=== PATIENT | male | born 1945 | race Caucasian/White ===

== ENCOUNTER 2018-01-05 13:19 | Inpatient (IN) ==
--- NOTE | 2018-01-05 14:40 | ED ---
HPI General Chief complaint: Skin/Abscess/Foreign Body Stated complaint: toe complaint Time Seen by Provider: 01/05/18 14:24 History of Present Illness HPI narrative: Patient comes back to the emergency department for re-evaluation right third toe infection. Patient reports has been ongoing for approximately a week. Patient is he has been soaking it in alcohol and peroxide. Denies anything making it better. States the whiteness over the dorsal aspect of the right toe seems to have expanded. Patient denies any pain with this but states he has neuropathy. Denies any fevers. Patient is he recently moved to the area does not have a primary care doctor. Patient states his right foot and lower extremity has been swollen for years. States right is normally worse than the left. Patient is he does not want to stay in the hospital he just went to get a prescription for some antibiotics. Patient states that he tried getting a primary care doctor however when called the physician he was referred to him by his insurance was told that they do not accept his insurance anymore. Denies any fevers. Related Data Home Medications Medication Instructions Recorded Confirmed Humalog U-100 Insulin NOT APPLICABLE DIRECTED 01/01/18 fenofibrate 160 mg PO DAILY 01/01/18 01/05/18 potassium chloride 10 mg PO DAILY 01/01/18 01/05/18 ranitidine HCl 150 mg PO BID 01/01/18 01/05/18 terazosin 20 mg PO DAILY 01/01/18 01/01/18 torsemide 20 mg PO DAILY 01/01/18 01/05/18 amlodipine 10 mg PO DAILY 01/05/18 01/05/18 atorvastatin 40 mg PO DAILY 01/05/18 01/05/18 carvedilol [Coreg] 1 PO BID 01/05/18 clopidogrel 75 mg PO DAILY 01/05/18 01/05/18 glimepiride 4 mg PO BID 01/05/18 01/05/18 losartan 100 mg PO DAILY 01/05/18 01/05/18 metformin 1,000 mg PO BID 01/05/18 01/05/18 sertraline 100 mg PO DAILY 01/05/18 01/05/18 Allergies Allergy/AdvReac Type Severity Reaction Status Date / Time No Known Allergies Allergy Unverified 01/01/18 12:28 Review of Systems Except as stated in HPI: all other systems reviewed are negative PMFSH Medical History Medical History Congestive heart failure (Acute) Depression (Acute) Diabetes (Acute) High cholesterol (Acute) Hypertension (Acute) Neuropathy (Acute) Social History Social History Substance History: No History of Abuse Smoking Status: Former smoker How Often Do You Have a Drink Containing Alcohol: Never Recent Travel in [facility] within the Last 8 Weeks: Yes Recent Out of Country Travel within the Last 8 Weeks: No Immunization History Tetanus Immunization: Unsure Exam Narrative Exam Narrative: GENERAL: Well-developed, overly nourished, in no acute distress , and non-ill appearing. SKIN: Patient has a ulcer noted over the distal tip of the right third toe. There is some sloughing of skin on the dorsal aspect of same toe. It is nontender. There is scant drainage. Is erythematous. Afebrile. Without crepitus. HEAD: Atraumatic. Normocephalic. EYES: Pupils equal and round. EOMI. No scleral icterus. No injection or drainage. ENT: No nasal bleeding or discharge. Mucous membranes pink and moist. NECK: Trachea midline. Supple. No nuclear rigidity. RESPIRATORY: No accessory muscle use. No respiratory distress. MUSCULOSKELETAL: No obvious deformities. No clubbing. No cyanosis. Edema bilateral lower extremities right greater than left.. Full range of motion. NEUROLOGICAL: Awake and alert. No obvious cranial nerve deficits. Motor grossly within normal limits. Normal speech. PSYCHIATRIC: Appropriate mood and affect; insight and judgment normal. Course Consultations Consultation #1: Discussed patient with Dr. Hogan lab instructor on-call, who requested MRI of foot and will see patient in consult. Time: 15:40 Consultation #2: Discussed patient with Dr. Davis, who is agreeable to admit the patient. Time: 16:08 Initial Documented Vital Signs Temperature 98.3 F 01/05/18 13:29 Pulse Rate 81 01/05/18 13:29 Respiratory Rate 01/05/18 13:29 Blood Pressure 185/96 H 01/05/18 13:29 Pulse Oximetry 95 01/05/18 13:29 Last Documented Vital Signs Temperature 98.3 F 01/05/18 13:29 Pulse Rate 81 01/05/18 13:29 Respiratory Rate 01/05/18 13:29 Blood Pressure 185/96 H 01/05/18 13:29 Pulse Oximetry 95 01/05/18 13:29 Medical Decision Making MDM Narrative Medical decision making narrative: Patient was seen and examined. IV was established patient was placed on continuous cardiac monitoring. Initial laboratory and radiological studies were ordered. Wound was cultured. Upon reviewing patient's x-ray noting osteomyelitis. This was discussed with patient is now agreeable with this for admission to the hospital. Patient was started on Zosyn and vancomycin. Patient with podiatry, who requested MRI will see patient in consult. Discussed patient with hospitalist who is agreeable to admit the patient. Discussed patient with Dr. Hollis, who is in agreement plan of care disposition. All questions were answered. Patient remained stable throughout ED course. Differential Diagnosis Differential Diagnosis: Cellulitis, abscess, paronychia, diabetic ulcer, felon, osteomyelitis Lab Data Lab results reviewed: Yes I reviewed the patient's lab results. Result diagrams: 01/05/18 14:40 01/05/18 14:40 Lab Results 01/05/18 01/05/18 Range/Units 14:40 14:40 WBC 9.3 (4.0-11.0) th/mm3 RBC 4.32 L (4.50-5.90) mil/mm3 Hgb 12.3 L (13.0-17.0) gm/dL Hct 36.6 L (39.0-51.0) % MCV 84.8 (80.0-100.0) fL MCH 28.6 (27.0-34.0) pg MCHC 33.7 (32.0-36.0) % RDW 13.9 (11.6-17.2) % Plt Count 345 (150-450) th/mm3 MPV 6.7 L (7.0-11.0) fL Neut % (Auto) 69.1 (16.0-70.0) % Lymph % (Auto) 16.9 (9.0-44.0) % Valley % (Auto) 10.4 H (0.0-8.0) % Eos % (Auto) 2.7 (0.0-4.0) % Baso % (Auto) 0.9 (0.0-2.0) % Neut # (Auto) 6.5 (1.8-7.7) th/mm3 Lymph # (Auto) 1.6 (1.0-4.8) th/mm3 Valley # (Auto) 1.0 H (0.0-0.9) th/mm3 Eos # (Auto) 0.3 (0.0-0.4) th/mm3 Baso # (Auto) 0.1 (0.0-0.2) th/mm3 WBC Differential . Differential Comment Auto diff final Sodium 138 (136-145) meq/L Potassium 3.8 (3.5-5.1) meq/L Chloride 103 (98-107) meq/L Carbon Dioxide 25.8 (21.0-32.0) meq/L Anion Gap 9 (5-15) meq/L BUN 26 H (7-18) mg/dL Creatinine 1.70 H (0.60-1.30) mg/dL Estimated GFR 40 L (>89) mL/min Random Glucose 205 H (74-106) mg/dL Calcium 8.6 (8.5-10.1) mg/dL Imaging Data Radiologist's impression: Foot X-Ray 01/05/18 14:32 CONCLUSION: 1. Destructive change involving the third distal phalanx characteristic of osteomyelitis. 2. Soft tissue swelling over the dorsum of the foot as well. Discharge Plan Discharge Disposition Patient Disposition: 30 Still Patient Discharge Condition Condition: Stable Discharge Details Diagnosis: Osteomyelitis Physicians Team ED Provider: Ford Hollis ED Midlevel Provider: Waldo Rao Primary Care Provider: Primary Care Jroge,Corie Attending Provider: Kelsea Davis Other Providers: Smtiha Hogan Discharge Interventions Interventions: Vital Signs Last Done: 01/05/18 13:29 Status ED Status: Pending Admission
[2018-01-05 15:05] LABS: Baso # (Auto) 0.1 th/mm3 (0.0-0.2); Baso % (Auto) 0.9 % (0.0-2.0); Eos # (Auto) 0.3 th/mm3 (0.0-0.4); Eos % (Auto) 2.7 % (0.0-4.0); Hematocrit 36.6 % (39.0-51.0); Hemoglobin 12.3 gm/dL (13.0-17.0); Lymph # (Auto) 1.6 th/mm3 (1.0-4.8); Lymph % (Auto) 16.9 % (9.0-44.0); Mean Corpuscular HGB Conc 33.7 % (32.0-36.0); Mean Corpuscular Hemoglobin 28.6 pg (27.0-34.0); Mean Corpuscular Volume 84.8 fL (80.0-100.0); Mean Platelet Volume 6.7 fL (7.0-11.0); Mono % (Auto) 10.4 % (0.0-8.0); Neut # (Auto) 6.5 th/mm3 (1.8-7.7); Neut % (Auto) 69.1 % (16.0-70.0); Platelet Count 345 th/mm3 (150-450); Red Blood Count 4.32 mil/mm3 (4.50-5.90); Red Cell Distribution Width 13.9 % (11.6-17.2); White Blood Count 9.3 th/mm3 (4.0-11.0)
[2018-01-05 15:32] LABS: Calcium 8.6 mg/dL (8.5-10.1); Carbon Dioxide 25.8 meq/L (21.0-32.0); Potassium 3.8 meq/L (3.5-5.1)
--- NOTE | 2018-01-05 15:32 | XR ---
EXAM DATE: 01/05/2018 3:20 PM EDT AGE/SEX: 72 years / Male INDICATIONS: Swelling and inflammation entire right foot, especially third, fourth and fifth digits CLINICAL DATA: This is the patient's sequela encounter. Patient reports that signs and symptoms have been present for 1 week and indicates a pain score of Nonresponsive. MEDICAL/SURGICAL HISTORY: Diabetes. neuropathy None. COMPARISON: [facility], FOOT LIMITED RIGHT 2V, 01/01/2018. . FINDINGS: AP, lateral and oblique views of right foot were obtained and demonstrate soft tissue swelling over t he dorsum of the foot as well as over the third and fourth digits. There is destructive change is now noted involving the fourth distal phalanx with cortical loss and destructive change. There is extens vladimir soft tissue swelling in this region. No other focal bony abnormalities are noted. There are mild degenerative changes. CONCLUSION: 1. Destructive change involving the third distal phalanx characteristic of osteomyelitis. 2. Soft tissue swelling over the dorsum of the foot as well. Electronically signed by: Thai Obrien MD 01/05/2018 3:31 PM EDT
[2018-01-05] MEDS ORDERED: Vancomycin Inj 1,000 MG in Sodium Chlor 0.9% Inj 250 ML IV.SIG STA (15:38)
[2018-01-05] MEDS ORDERED: Piperacil/Tazo 4.5 GM Premix 4.5 GM/100 ML BAG IV.SIG STA (15:38)
--- NOTE | 2018-01-05 16:11 | P.HPIM ---
History of Present Illness Primary Care Physician: No Primary Care Physician Chief Complaint: Right middle toe infection History of Present Illness: 9-year-old male with a medical history significant for hypertension, CHF, diabetes, neuropathy initially presented to the hospital about a week ago for right toe infection but left the hospital AMA. He returned because the wound has not gotten better and appear to be getting worse. He reports that he might have been wearing the wrong shoe. He states he has neuropathy and cannot feel his feet. He denies any pain, no fevers or chills. The patient recently moved from [place] and does not have a primary care physician or any specialist that he follows with. Workup in the emergency room revealed destructive changes involving the third distal phalanx characteristics of osteomyelitis. He was reluctant to stay in the hospital but after discussion with him, he understands the need to stay and get treated. - Diagnosis (1) Chronic CHF (2) Diabetes (3) Osteomyelitis Review of Systems All other systems reviewed negative except as stated in HPI PMFSH - History History Provided By: Patient - Medical History Medical History: Medical History (Last Reviewed 01/05/18 @ 16:57 by Kelsea Davis MD) Congestive heart failure Depression Diabetes High cholesterol Hypertension Neuropathy - Surgical History Surgical History: Surgical History (Last Updated 01/05/18 @ 16:57 by Kelsea Davis MD) History of hernia repair History of heart artery stent - Family History Family History: Family History (Last Updated 01/05/18 @ 16:57 by Kelsea Davis MD) Other Family history non-contributory - Tobacco History Smoking Status: Former smoker - Alcohol History How Often Do You Have a Drink Containing Alcohol: Never - Substance Use History Substance History: No History of Abuse - Travel History Recent Travel in the [facility] Within the Last 8 Weeks: Yes Recent Travel Out of the Country Within the Last 8 Weeks: No - Immunization History Tetanus Immunization: Unsure Medications and Allergies Active Medications: Active Medications Amlodipine Besylate (Norvasc) 10 mg PO DAILY [facility] Atorvastatin Calcium (Lipitor) 40 mg PO DAILY [facility] Vancomycin HCl 1,000 mg/ (Sodium Chloride) 250 mls @ 250 mls/hr IV.SIG STAT STA Stop: 01/05/18 16:37 Non-Formulary Medication (Carvedilol [Coreg]) 25 mg PO BID [facility] Non-Formulary Medication (Losartan [Losartan]) 100 mg PO DAILY [facility] Non-Formulary Medication (Potassium Chloride) 10 mg PO DAILY [facility] Non-Formulary Medication (Ranitidine Hcl) 150 mg PO BID [facility] Non-Formulary Medication (Terazosin) 20 mg PO DAILY [facility] Non-Formulary Medication (Torsemide) 20 mg PO DAILY [facility] Sertraline HCl (Zoloft) 100 mg PO DAILY [facility] Allergies Allergy/AdvReac Type Severity Reaction Status Date / Time No Known Allergies Allergy Unverified 01/01/18 12:28 Home Medications Medication Instructions Recorded Confirmed Type Humalog U-100 Insulin NOT APPLICABLE DIRECTED 01/01/18 History fenofibrate 160 mg PO DAILY 01/01/18 01/05/18 History potassium chloride 10 mg PO DAILY 01/01/18 01/05/18 History ranitidine HCl 150 mg PO BID 01/01/18 01/05/18 History terazosin 20 mg PO DAILY 01/01/18 01/01/18 History torsemide 20 mg PO DAILY 01/01/18 01/05/18 History amlodipine 10 mg PO DAILY 01/05/18 01/05/18 History atorvastatin 40 mg PO DAILY 01/05/18 01/05/18 History carvedilol [Coreg] 1 PO BID 01/05/18 History clopidogrel 75 mg PO DAILY 01/05/18 01/05/18 History glimepiride 4 mg PO BID 01/05/18 01/05/18 History losartan 100 mg PO DAILY 01/05/18 01/05/18 History metformin 1,000 mg PO BID 01/05/18 01/05/18 History sertraline 100 mg PO DAILY 01/05/18 01/05/18 History Exam Vital signs: Vital Signs 01/05/18 13:29 Temperature 98.3 F Pulse Rate 81 Respiratory Rate 22 Blood Pressure 185/96 H Pulse Oximetry 95 Intake & Output 01/04/18 01/05/18 01/05/18 18:59 06:59 18:59 Weight 140.614 kg Narrative: CONSTITUTIONAL/GENERAL: Obese male in no apparent distress. Vital signs reviewed SKIN: No jaundice, rashes, or concerning lesions. Not diaphoretic. HEAD: Atraumatic. Normocephalic. EYES: Pupils equal and round and reactive. ENT: Hearing grossly normal. Nose without drainage. NECK: Trachea midline. Neck is supple, non-tender. No palpable thyroid enlargement or nodularity. CARDIOVASCULAR: Normal rate and regular rhythm without murmurs, gallops, or rubs. No JVD. Peripheral pulses 2+ and symmetric. RESPIRATORY/CHEST: Symmetric, unlabored respirations. Breath sounds equal and clear to auscultation bilaterally. No wheezes, crackles, rales, or rhonchi. GASTROINTESTINAL: Abdomen obese, soft, non-tender, non-distended. MUSCULOSKELETAL: Right lower extremity with 2+ edema, left lower extremity with 1+ edema. Pattern is chronic per the patient. Right middle toe has an avulsion with old blood, obvious pus collection involving the whole toe. Right fifth toe has a small necrotic area at the tip of it. NEUROLOGICAL: Awake and alert. No sensation in the foot. PSYCHIATRIC: No obvious mood problems. Results - Labs CBC & Chem 7: 01/05/18 14:40 01/05/18 14:40 Labs: Short CBC 01/05/18 Range/Units 14:40 WBC 9.3 (4.0-11.0) th/mm3 Hgb 12.3 L (13.0-17.0) gm/dL Hct 36.6 L (39.0-51.0) % Plt Count 345 (150-450) th/mm3 BMP 01/05/18 14:40 Sodium 138 Potassium 3.8 Chloride 103 Carbon Dioxide 25.8 BUN 26 H Creatinine 1.70 H Calcium 8.6 - Imaging Impressions Foot X-Ray 01/05/18 14:32 CONCLUSION: 1. Destructive change involving the third distal phalanx characteristic of osteomyelitis. 2. Soft tissue swelling over the dorsum of the foot as well. Caprini VTE Risk Assessment Caprini VTE Risk Assessment: Moderate/High Risk (score >= 2) Caprini Risk Assessment Model: Point Value = 1 Point Value = 2 Point Value = 3 Point Value = 5 Age 41-60 Minor surgery BMI > 25 kg/m2 Swollen legs Varicose veins or History of unexplained or recurrent spontaneous Oral contraceptives or hormone replacement Sepsis (< 1 month) Serious lung disease, including pneumonia (< 1 month) Abnormal pulmonary function Acute myocardial infarction Congestive heart failure (< 1 month) History of inflammatory bowel disease Medical patient at bed rest Age 61-74 Arthroscopic surgery Major open surgery (> 45 min) Laparoscopic surgery (> 45 min) Malignancy Confined to bed (> 72 hours) Immobilizing plaster cast Central venous access Age >= 75 History of VTE Family history of VTE Factor V Leiden Prothrombin [id number] Lupus anticoagulant Anticardiolipin antibodies Elevated serum homocysteine Heparin-induced thrombocytopenia Other congenital or acquired thrombophilia Stroke (< 1 month) Elective arthroplasty Hip, pelvis, or leg fracture Acute spinal cord injury (< 1 month) Prophylaxis Regimen: Total Risk Factor Score Risk Level Prophylaxis Regimen 0-1 Low Early ambulation 2 Moderate Order ONE of the following: *Sequential Compression Device (SCD) *Heparin 5000 units SQ BID 3-4 Higher Order ONE of the following medications: *Heparin 5000 units SQ TID *Enoxaparin/Lovenox 40 mg SQ daily (WT < 150 kg, CrCl > 30 mL/min) *Enoxaparin/Lovenox 30 mg SQ daily (WT < 150 kg, CrCl > 10-29 mL/min) *Enoxaparin/Lovenox 30 mg SQ BID (WT < 150 kg, CrCl > 30 mL/min) AND/OR *Sequential Compression Device (SCD) 5 or more Highest Order ONE of the following medications: *Heparin 5000 units SQ TID (Preferred with Epidurals) *Enoxaparin/Lovenox 40 mg SQ daily (WT < 150 kg, CrCl > 30 mL/min) *Enoxaparin/Lovenox 30 mg SQ daily (WT < 150 kg, CrCl > 10-29 mL/min) *Enoxaparin/Lovenox 30 mg SQ BID (WT < 150 kg, CrCl > 30 mL/min) AND *Sequential Compression Device (SCD) Assessment and Plan - Assessment (1) Chronic CHF Code(s): I50.9 - Heart failure, unspecified Status: Acute (2) Diabetes Code(s): E11.9 - Type 2 diabetes mellitus without complications Status: Acute (3) Osteomyelitis Code(s): M86.9 - Osteomyelitis, unspecified Status: Acute - Plan 72-year-old male with diabetes and neuropathy, hypertension, CHF admitted for right third toe osteomyelitis. Osteomyelitis: X-ray in the emergency room shows destructive change involving the third distal phalanx characteristic of osteomyelitis -Podiatry has been consulted. MRI ordered. -Wound cultures obtained. Continue vancomycin and Zosyn. Diabetes with neuropathy: -Sliding scale insulin with Accu-Cheks. Hold oral agents. -Check hemoglobin A1c CHF: Stable. No exacerbation. -Continue home medications. Hypertension: Stable. -Continue home medications GI prophylaxis: Stool softener PRN constipation. DVT PPx: Heparin (2) Diabetes Qualifiers: Diabetes mellitus complication detail: with polyneuropathy (3) Osteomyelitis Qualifiers: Osteomyelitis type: unspecified type Osteomyelitis location: foot Laterality : right Qualified Code(s): M86.9 - Osteomyelitis, unspecified
[2018-01-05] MEDS ORDERED: Dextrose 50% in Water 50 ML Vial IV.PUSH PRN (16:12)
[2018-01-05] MEDS ORDERED: Bisacodyl 10 MG Supp RECTAL PRN (16:13)
[2018-01-05] MEDS: Heparin - SQ 10,000 UNITS/ML Vial SQ SCH (17:43)
[2018-01-05] MEDS ORDERED: Vancomycin Inj 1 GM/200 ML PIGGYBACK IV.SIG SCH (18:00)
[2018-01-05] MEDS ORDERED: Vancomycin Consult Pharmacy 1 EACH OTHER SCH (18:00)
--- NOTE | 2018-01-05 18:49 | MB ---
cc: Smitha Hogan DPM DATE: 01/05/2018 CHIEF COMPLAINT: Right third digit infection. HISTORY OF PRESENT ILLNESS: Mr. Chatterjee is a 72-year-old male patient, recently moved here from [place] and has no medical care established. He states that he has neuropathy and did not feel the toe ulceration, but has had a wound there for approximately 1 week, which has been worsening. He did come into the hospital originally, but left AMA. He feels the symptoms have worsened since he initially came and, therefore, waited this time for admission. He denies any nausea, vomiting, fever, headaches or chills. PAST MEDICAL HISTORY: Congestive heart failure, depression, diabetes, high cholesterol, hypertension and neuropathy. PAST SURGICAL HISTORY: Includes repair of a hernia and a coronary artery stent. FAMILY HISTORY: Noncontributory. SOCIAL HISTORY: The patient is a former smoker. Denies any alcohol or drug abuse. MEDICATIONS: Please see list. VITAL SIGNS: Temperature 98.3, pulse is 81, respiratory rate 22, blood pressure 185/96, O2 is 95% at room air. LABORATORY DATA: White count is 9.3, hemoglobin 12.3, hematocrit 36.6, platelets 345. Sodium 138, potassium 3.8, chloride 103, carbon dioxide 25.8, glucose 205. IMAGING: X-rays show destructive bone pattern on the distal aspect of the third digit. No gas in the soft tissues. No fractures or dislocations. MRI is pending. ASSESSMENT AND PLAN: 1. Right foot third digit osteomyelitis. - Discussed conservative and surgical options at length - Plan for surgical amputation tomorrow. - N.p.o. after midnight. Thank you for allowing me to be involved in this patient's care. CESLA Perez/RIAN , 06:34 PM , 06:47 PM ASHA
[2018-01-05] MEDS: Insulin NovoLOG Aspart Correctional Sugar Inj SQ SCH ×2 (19:03→22:08)
--- NOTE | 2018-01-05 20:32 | MR ---
EXAM DATE: 01/05/2018 8:24 PM EDT AGE/SEX: 72 years / Male INDICATIONS: Osteomyelitis. Wound on third toe and fifth toe. CLINICAL DATA: This is the patient's initial encounter. Patient reports that signs and symptoms have been present for 2 weeks and indicates a pain score of 1/10. MEDICAL/SURGICAL HISTORY: Diabetes mellitus type II. Cardiovascular disease. Hypercholesterol emia. High blood pressure. Tonsillectomy. Coronary artery stent. Hernia repair. COMPARISON: [facility], FOOT COMPLETE RIGHT 3V, 01/05/2018. [facility], FOOT LIMITED RIGHT 2V, 01/01/2018. . TECHNIQUE: Multiplanar, multisequence MRI examination was performed without contrast and after th e intravenous administration of 14 ml Gadavist (gadobutrol) single exam dose. FINDINGS: Bones: There is abnormal signal seen in the distal third phalanx seen on the T1 and T2-weighted image s. On axial images, there appears to be disruption of the cortex. Remaining bony structures demonstra te normal signal. Joint Spaces: No joint effusion or loose bodies are seen. The joint spaces are preserved. Tendons: The flexor tendons are intact. Soft Tissues: There is edema seen throughout the subcutaneous tissues. Other: The plantar fascia is intact. No signal abnormalities are seen in the plantar musculature. Post Contrast: There are no abnormal areas of enhancement in the marrow, muscle or soft tissues on im ages obtained after intravenous administration of gadolinium. CONCLUSION: Abnormal signal in the distal aspect of the third distal phalanx. Given the history, this consistent with osteomyelitis. The fifth digit appears intact. Electronically signed by: Sahshank Goel MD 01/05/2018 8:31 PM EDT
[2018-01-05] MEDS ORDERED: Gadobutrol PF 7.5 MMOL/7.5 ML Vial (for RAD) IV.SIG ONE (20:36)
[2018-01-05] MEDS: Piperacil/Tazo 3.375 GM Premix 50 ML IV.SIG SCH (21:59)
[2018-01-05] MEDS: Famotidine 20 MG Tablet PO SCH (21:59)
[2018-01-05] MEDS: Carvedilol 12.5 MG Tablet PO SCH (21:59)
[2018-01-05] MEDS ORDERED: Vancomycin Inj 2,000 MG in Sodium Chlor 0.9% Inj 500 ML IV.SIG ONE (22:00)
[2018-01-05 22:40] LABS: C-Reactive Protein 8.1 mg/dL (0.00-0.30)
[2018-01-05] MEDS: Temazepam 15 MG Capsule PO PRN (23:15)
[2018-01-06] MEDS ORDERED: Sodium Chlor 0.9% Inj 500 ML IV.SIG SCH (02:00)
[2018-01-06] MEDS ORDERED: Chlorhexidine Gluconate 2% 1 Pack (2 Cloths) TOPICAL SCH (02:00)
[2018-01-06] MEDS ORDERED: Metoprolol Tartrate 25 MG Tablet PO SCH (02:00)
[2018-01-06] MEDS: Piperacil/Tazo 3.375 GM Premix 50 ML IV.SIG SCH ×4 (04:59→21:32)
[2018-01-06 07:26] LABS: Baso # (Auto) 0.1 th/mm3 (0.0-0.2); Eos # (Auto) 0.2 th/mm3 (0.0-0.4); Eos % (Auto) 3.1 % (0.0-4.0); Hemoglobin 11.8 gm/dL (13.0-17.0); Lymph # (Auto) 1.6 th/mm3 (1.0-4.8); Lymph % (Auto) 21.6 % (9.0-44.0); Mean Corpuscular HGB Conc 34.6 % (32.0-36.0); Mean Corpuscular Hemoglobin 29.4 pg (27.0-34.0); Mean Corpuscular Volume 85.1 fL (80.0-100.0); Mean Platelet Volume 6.9 fL (7.0-11.0); Mono # (Auto) 0.9 th/mm3 (0.0-0.9); Mono % (Auto) 12.3 % (0.0-8.0); Neut # (Auto) 4.5 th/mm3 (1.8-7.7); Platelet Count 332 th/mm3 (150-450); Red Cell Distribution Width 13.5 % (11.6-17.2); White Blood Count 7.2 th/mm3 (4.0-11.0)
[2018-01-06 07:48] LABS: Calcium 8.4 mg/dL (8.5-10.1); Carbon Dioxide 26.5 meq/L (21.0-32.0); Potassium 3.5 meq/L (3.5-5.1)
[2018-01-06] MEDS: Insulin NovoLOG Aspart Correctional Sugar Inj SQ SCH ×4 (08:53→20:49)
[2018-01-06] MEDS: Carvedilol 12.5 MG Tablet PO SCH ×2 (08:53→20:43)
[2018-01-06] MEDS: Sertraline 100 MG Tablet PO SCH (08:53)
[2018-01-06] MEDS: amLODIPine 10 MG Tablet PO SCH (08:53)
[2018-01-06] MEDS: Famotidine 20 MG Tablet PO SCH ×2 (08:53→20:43)
[2018-01-06] MEDS: Torsemide 20 MG Tablet PO SCH (08:53)
[2018-01-06] MEDS: Potassium Chloride 10 MEQ ER Capsule PO SCH (08:53)
[2018-01-06] MEDS: Heparin - SQ 10,000 UNITS/ML Vial SQ SCH ×2 (09:04→20:44)
--- NOTE | 2018-01-06 10:58 | P.PNIM ---
Subjective Interval history: Patient reports he is feeling okay. No new issues. Afebrile. Will have surgery today. He is requesting Xanax to be used as needed. He states he gets very anxious in the hospital and normally requires Xanax while he is in the hospital. Physical Exam Vital signs: Vital Signs 01/05/18 13:29 01/05/18 17:30 01/05/18 20:45 Temperature 98.3 F 97.9 F Pulse Rate 81 80 69 Respiratory Rate 22 18 18 Blood Pressure 185/96 H 170/90 H 170/92 H Pulse Oximetry 95 95 95 01/06/18 00:00 Temperature 97.7 F Pulse Rate 69 Respiratory Rate 18 Blood Pressure 156/71 H Pulse Oximetry 95 Intake & Output 01/05/18 01/06/18 01/06/18 18:59 06:59 18:59 Intake Total 350 / 350 620 / 620 50 / 50 Balance 350 / 350 620 / 620 50 / 50 Weight 140.614 kg Intake: IV 350 / 350 620 / 620 50 / 50 Zosyn 3.375 GM Premix 50 ML @ 100 / 100 50 / 50 100 mls/hr IV.SIG Q6H [facility] Rx#: [id number] Zosyn 4.5 GM Premix 4.5 gm In 100 / 100 100 ml @ 200 mls/hr IV.SIG STAT STA Rx#:[id number] Vancomycin Inj 1,000 MG In NS 250 / 250 Inj 250 ML @ 250 mls/hr IV.SIG STAT STA Rx#:[id number] Vancomycin Inj 2,000 MG In NS 520 / 520 Inj 500 ML @ 257.5 mls/hr IV. SIG ONCE ONE Rx#:[id number] Other: # Voids 2 Narrative: CONSTITUTIONAL/GENERAL: Obese male in no apparent distress. Vital signs reviewed CARDIOVASCULAR: Normal rate and regular rhythm without murmurs, gallops, or rubs. RESPIRATORY/CHEST: Symmetric, unlabored respirations. Breath sounds equal and clear to auscultation bilaterally. GASTROINTESTINAL: Abdomen obese, soft, non-tender, non-distended. MUSCULOSKELETAL: Right lower extremity with 2+ edema, left lower extremity with 1+ edema. Pattern is chronic per the patient. Right middle toe has an avulsion with old blood, obvious pus collection involving the whole toe. Right fifth toe has a small necrotic area at the tip of it. NEUROLOGICAL: Awake and alert. No sensation in the foot. PSYCHIATRIC: No obvious mood problems. Results - Labs CBC & Chem 7: 01/06/18 06:16 01/06/18 06:16 Laboratory Results - last 24 hr 01/05/18 01/05/18 01/05/18 14:20 14:40 14:40 WBC 9.3 RBC 4.32 L Hgb 12.3 L Hct 36.6 L MCV 84.8 MCH 28.6 MCHC 33.7 RDW 13.9 Plt Count 345 MPV 6.7 L Neut % (Auto) 69.1 Lymph % (Auto) 16.9 Ford % (Auto) 10.4 H Eos % (Auto) 2.7 Baso % (Auto) 0.9 Neut # (Auto) 6.5 Lymph # (Auto) 1.6 Ford # (Auto) 1.0 H Eos # (Auto) 0.3 Baso # (Auto) 0.1 WBC Differential . Differential Comment Auto diff final ESR 60 H Sodium 138 Potassium 3.8 Chloride 103 Carbon Dioxide 25.8 Anion Gap 9 BUN 26 H Creatinine 1.70 H Estimated GFR 40 L POC Glucose Random Glucose 205 H Calcium 8.6 C-Reactive Protein 8.10 H 01/05/18 01/05/18 01/06/18 14:40 22:06 06:16 WBC 7.2 RBC 4.00 L Hgb 11.8 L Hct 34.0 L MCV 85.1 MCH 29.4 MCHC 34.6 RDW 13.5 Plt Count 332 MPV 6.9 L Neut % (Auto) 62.0 Lymph % (Auto) 21.6 Ford % (Auto) 12.3 H Eos % (Auto) 3.1 Baso % (Auto) 1.0 Neut # (Auto) 4.5 Lymph # (Auto) 1.6 Ford # (Auto) 0.9 Eos # (Auto) 0.2 Baso # (Auto) 0.1 WBC Differential . Differential Comment Auto diff final ESR Sodium Potassium Chloride Carbon Dioxide Anion Gap BUN Creatinine Estimated GFR POC Glucose 284 H Random Glucose Calcium C-Reactive Protein Cancelled 01/06/18 01/06/18 06:16 08:11 WBC RBC Hgb Hct MCV MCH MCHC RDW Plt Count MPV Neut % (Auto) Lymph % (Auto) Ford % (Auto) Eos % (Auto) Baso % (Auto) Neut # (Auto) Lymph # (Auto) Ford # (Auto) Eos # (Auto) Baso # (Auto) WBC Differential Differential Comment ESR Sodium 141 Potassium 3.5 Chloride 106 Carbon Dioxide 26.5 Anion Gap 9 BUN 20 H Creatinine 1.57 H Estimated GFR 44 L POC Glucose 211 H Random Glucose 193 H Calcium 8.4 L C-Reactive Protein Microbiology 01/05/18 14:40 Wound - Toe Gram Stain - Final - Imaging Impressions Foot X-Ray 01/05/18 14:32 CONCLUSION: 1. Destructive change involving the third distal phalanx characteristic of osteomyelitis. 2. Soft tissue swelling over the dorsum of the foot as well. Foot MRI 01/05/18 15:48 CONCLUSION: Abnormal signal in the distal aspect of the third distal phalanx. Given the history, this consistent with osteomyelitis. The fifth digit appears intact. Assessment and Plan - Assessment (1) Chronic CHF Code(s): I50.9 - Heart failure, unspecified Status: Acute (2) Diabetes Code(s): E11.9 - Type 2 diabetes mellitus without complications Status: Acute (3) Osteomyelitis Code(s): M86.9 - Osteomyelitis, unspecified Status: Acute (4) Situational anxiety Code(s): F41.8 - Other specified anxiety disorders Status: Acute - Plan 72-year-old male with diabetes and neuropathy, hypertension, CHF admitted for right third toe osteomyelitis. Osteomyelitis: X-ray in the emergency room shows destructive change involving the third distal phalanx characteristic of osteomyelitis -Podiatry has been consulted. MRI also suggests osteomyelitis -Wound cultures obtained. Continue vancomycin and Zosyn. -Plan for OR today for right third digit amputation. Diabetes with neuropathy: -Sliding scale insulin with Accu-Cheks. Hold oral agents. -Check hemoglobin A1c CHF: Stable. No exacerbation. -Continue home medications. Hypertension: Stable. -Continue home medications Anxiety: Situational - Xanax PRN. GI prophylaxis: Stool softener PRN constipation. DVT PPx: Heparin (2) Diabetes Qualifiers: Diabetes mellitus complication detail: with polyneuropathy (3) Osteomyelitis Qualifiers: Osteomyelitis type: unspecified type Osteomyelitis location: foot Laterality : right Qualified Code(s): M86.9 - Osteomyelitis, unspecified
[2018-01-06] MEDS ORDERED: Etomidate Inj 20 MG/10 ML Ampul IV.PUSH ONE (11:40)
[2018-01-06] MEDS ORDERED: Lidocaine PF 1% Inj 5 ML Syringe INFILTRATN ONE (12:00)
[2018-01-06] MEDS ORDERED: *morphine SULFATE 10 MG/ML PERIprocedure ONLY ONE (13:06)
--- NOTE | 2018-01-06 14:24 | XR ---
EXAM DATE: 01/06/2018 1:28 PM EDT AGE/SEX: 72 years / Male INDICATIONS: Post op right foot. CLINICAL DATA: This is the patient's initial encounter. Patient reports that signs and symptoms have been present for 1 day and indicates a pain score of Nonresponsive. MEDICAL/SURGICAL HISTORY: Non-responsive. Non-responsive. [place] [facility] [place]. . FINDINGS: The patient is status post amputation of the right third middle and distal phalanges. Degenerative ch anges are again noted involving the first metatarsophalangeal joint. No acute fracture or dislocation is noted. CONCLUSION: 1. Status post amputation of the right third middle and distal phalanges. 2. Degenerative changes involving the first metatarsophalangeal joint. Electronically signed by: Petr Paredes MD 01/06/2018 2:23 PM EDT
[2018-01-06] MEDS: ALPRAZolam 0.25 MG Tablet PO PRN ×2 (15:36→21:32)
--- NOTE | 2018-01-06 18:35 | ECG ---
Date Performed: 01/06/2018 Time Performed: 06:11:10 PTAGE: 72 years EKG: Sinus rhythm Possible left anterior fascicular block Abnormal ECG NO PREVIOUS TRACING DOCTOR: Schuyler Mancia Interpretating Date/Time 01/06/2018 18:33:43
[2018-01-06 18:38] LABS: Hemoglobin A1c 9.7 % (4.3-6.0)
[2018-01-06] MEDS: Temazepam 15 MG Capsule PO PRN (21:36)
[2018-01-06] MEDS: Vancomycin Inj 2,000 MG in Sodium Chlor 0.9% Inj 500 ML IV.SIG SCH (22:32)
[2018-01-07] MEDS: Piperacil/Tazo 3.375 GM Premix 50 ML IV.SIG SCH ×4 (03:34→21:25)
[2018-01-07] MEDS: ALPRAZolam 0.25 MG Tablet PO PRN ×3 (03:34→22:28)
[2018-01-07] MEDS: Potassium Chloride 10 MEQ ER Capsule PO SCH (09:02)
[2018-01-07] MEDS: Torsemide 20 MG Tablet PO SCH (09:04)
[2018-01-07] MEDS: Famotidine 20 MG Tablet PO SCH ×2 (09:05→20:05)
[2018-01-07] MEDS: amLODIPine 10 MG Tablet PO SCH (09:05)
[2018-01-07] MEDS: Carvedilol 12.5 MG Tablet PO SCH ×2 (09:05→20:05)
[2018-01-07] MEDS: Sertraline 100 MG Tablet PO SCH (09:05)
[2018-01-07] MEDS: Insulin NovoLOG Aspart Correctional Sugar Inj SQ SCH ×4 (09:06→20:13)
[2018-01-07] MEDS: Heparin - SQ 10,000 UNITS/ML Vial SQ SCH ×2 (09:06→20:05)
--- NOTE | 2018-01-07 16:07 | P.PNIM ---
Subjective Interval history: Patient is requesting to go home. No other issues. Physical Exam Vital signs: Vital Signs 01/06/18 20:00 01/07/18 00:00 01/07/18 08:00 Temperature 97.4 F L 97.3 F L 97.2 F L Pulse Rate 61 60 67 Respiratory Rate 20 18 20 Blood Pressure 140/68 136/70 Pulse Oximetry 96 96 95 01/07/18 12:00 Temperature 97.2 F L Pulse Rate 63 Respiratory Rate 18 Blood Pressure 179/89 H Pulse Oximetry 96 Intake & Output 01/06/18 01/07/18 01/07/18 18:59 06:59 18:59 Intake Total 1600 / 1600 860 / 860 50 / 50 Output Total 5 / 5 Balance 1595 / 1595 860 / 860 50 / 50 Weight 139.7 kg Intake: IV 100 / 100 620 / 620 50 / 50 Zosyn 3.375 GM Premix 50 ML @ 100 / 100 100 / 100 50 / 50 100 mls/hr IV.SIG Q6H [facility] Rx#: [id number] Vancomycin Inj 2,000 MG In NS 520 / 520 Inj 500 ML @ 250 mls/hr IV.SIG Q24H [facility] Rx#:[id number] Oral 800 / 800 240 / 240 Anesthesia Amount 700 / 700 Output: Estimated Blood Loss 5 / 5 Other: # Voids 3 3 Date of Last Bowel Movement 01/06/18 # Bowel Movements 1 Narrative: CONSTITUTIONAL/GENERAL: Obese male in no apparent distress. Vital signs reviewed CARDIOVASCULAR: Normal rate and regular rhythm without murmurs, gallops, or rubs. RESPIRATORY/CHEST: Symmetric, unlabored respirations. Breath sounds equal and clear to auscultation bilaterally. GASTROINTESTINAL: Abdomen obese, soft, non-tender, non-distended. MUSCULOSKELETAL: Right lower extremity with 2+ edema, left lower extremity with 1+ edema. Pattern is chronic per the patient. Right foot in a postop shoe. Dressing appear intact. NEUROLOGICAL: Awake and alert. No sensation in the foot. PSYCHIATRIC: No obvious mood problems. Results - Labs CBC & Chem 7: 01/06/18 06:16 01/07/18 06:34 Laboratory Results - last 24 hr 01/06/18 01/06/18 01/06/18 06:16 16:56 20:45 Creatinine Estimated GFR POC Glucose 281 H 252 H Hemoglobin A1c 9.7 H 07/26/18 07/26/18 07/26/18 06:34 07:52 12:06 Creatinine 1.71 H Estimated GFR 40 L POC Glucose 192 H 270 H Hemoglobin A1c Microbiology 01/05/18 14:40 Wound - Toe Gram Stain - Final 01/05/18 14:40 Wound - Toe Wound Culture - Final Staphylococcus aureus 01/05/18 16:20 Blood - Peripheral Aerobic Blood Culture - Preliminary No growth in 2 days 01/05/18 16:20 Blood - Peripheral Anaerobic Blood Culture - Preliminary No growth in 2 days 01/05/18 16:05 Blood - Peripheral Aerobic Blood Culture - Preliminary No growth in 2 days 01/05/18 16:05 Blood - Peripheral Anaerobic Blood Culture - Preliminary No growth in 2 days Assessment and Plan - Assessment (1) Chronic CHF Code(s): I50.9 - Heart failure, unspecified Status: Acute (2) Diabetes Code(s): E11.9 - Type 2 diabetes mellitus without complications Status: Acute (3) Osteomyelitis Code(s): M86.9 - Osteomyelitis, unspecified Status: Acute (4) Situational anxiety Code(s): F41.8 - Other specified anxiety disorders Status: Acute - Plan 72-year-old male with diabetes and neuropathy, hypertension, CHF admitted for right third toe osteomyelitis. Osteomyelitis: X-ray in the emergency room shows destructive change involving the third distal phalanx characteristic of osteomyelitis -Podiatry following. MRI also suggests osteomyelitis. -Patient is status post right third digit amputation -Wound cultures obtained. Continue vancomycin and Zosyn. -Further plans per podiatry. Diabetes with neuropathy: -Sliding scale insulin with Accu-Cheks. Hold oral agents. -hemoglobin A1c 9.7 CHF: Stable. No exacerbation. -Continue home medications. Hypertension: Stable. -Continue home medications Anxiety: Situational - Xanax PRN. GI prophylaxis: Stool softener PRN constipation. DVT PPx: Heparin (2) Diabetes Qualifiers: Diabetes mellitus complication detail: with polyneuropathy (3) Osteomyelitis Qualifiers: Osteomyelitis type: unspecified type Osteomyelitis location: foot Laterality : right Qualified Code(s): M86.9 - Osteomyelitis, unspecified
[2018-01-07] MEDS ORDERED: Chlorhexidine 4% Topical 120 APPLIC/120 ML Bottle TOPICAL ONE (18:31)
--- NOTE | 2018-01-07 18:48 | P.PNPOD ---
Physical Exam Vital signs: Vital Signs 01/06/18 20:00 01/07/18 00:00 01/07/18 08:00 Temperature 97.4 F L 97.3 F L 97.2 F L Pulse Rate 61 60 67 Respiratory Rate 20 18 20 Blood Pressure 140/68 136/70 Pulse Oximetry 96 96 95 01/07/18 12:00 01/07/18 16:00 Temperature 97.2 F L 97.4 F L Pulse Rate 63 59 L Respiratory Rate 18 18 Blood Pressure 179/89 H 155/78 H Pulse Oximetry 96 96 Intake & Output 01/06/18 01/07/18 01/07/18 18:59 06:59 18:59 Intake Total 1600 / 1600 860 / 860 940 / 940 Output Total 5 / 5 Balance 1595 / 1595 860 / 860 940 / 940 Weight 139.7 kg Intake: IV 100 / 100 620 / 620 100 / 100 Zosyn 3.375 GM Premix 50 ML @ 100 / 100 100 / 100 100 / 100 100 mls/hr IV.SIG Q6H ON LICENSE OF [facility] Rx#: [id number] Vancomycin Inj 2,000 MG In NS 520 / 520 Inj 500 ML @ 250 mls/hr IV.SIG Q24H ON LICENSE OF [facility] Rx#:[id number] Oral 800 / 800 240 / 240 840 / 840 Anesthesia Amount 700 / 700 Output: Estimated Blood Loss 5 / 5 Other: # Voids 3 3 5 Date of Last Bowel Movement 01/06/18 # Bowel Movements 1 1 Narrative: Right foot dressing clean, dry, intact. Surgical shoe on. Left foot distal tip of toe with small fissure, no active drainage. Mild hyperkeratotic buildup noted. Nail thickened. No drainage, no purulence, no edema, no erythema, no malodor, no sign of infection present at this time. Stable in appearance. No further lesions noted to left foot at this time. Medications and Allergies Active Medications: Active Medications Al Hydroxide/Mg Hydroxide (Milk Of Magnmiguel Liq) 30 ml PO Q12H PRN PRN Reason: Mild Constipation Alprazolam (Xanax) 0.25 mg PO Q6H PRN PRN Reason: ANXIETY Last Admin: 01/07/18 16:31 Dose: 0.25 mg Amlodipine Besylate (Norvasc) 10 mg PO DAILY ON LICENSE OF [facility] Last Admin: 01/07/18 09:05 Dose: 10 mg Atorvastatin Calcium (Lipitor) 40 mg PO DAILY ON LICENSE OF [facility] Last Admin: 01/07/18 09:05 Dose: 40 mg Bisacodyl (Dulcolax Supp) 10 mg RECTAL DAILY PRN PRN Reason: SEVERE CONSITIPATION Carvedilol (Coreg) 25 mg PO BID ON LICENSE OF [facility] Last Admin: 01/07/18 09:05 Dose: 25 mg Chlorhexidine Gluconate (Chlorhexidine 2% Cloth) 3 pack TOPICAL QUICK SERVICE TECHNICIAN ON LICENSE OF [facility] Stop: 01/09/18 01:58 Clonidine HCl (Catapres) 0.1 mg PO Q6H PRN PRN Reason: SEE LABEL COMMENTS Dextrose (D50w Vial) 50 ml IV.PUSH UNSCH PRN PRN Reason: PER HYPOGLYCEMIA PROTOCOL Famotidine (Pepcid) 20 mg PO BID ON LICENSE OF [facility] Last Admin: 01/07/18 09:05 Dose: 20 mg Glucagon (Glucagon Inj) 1 mg OTHER PRN PRN PRN Reason: for Hypoglycemia Protocol Heparin Sodium (Porcine) (Heparin Inj) 5,000 units SQ Q12HR ON LICENSE OF [facility] Last Admin: 01/07/18 09:06 Dose: 5,000 units Piperacillin/Tazobactam/Dextrose (Zosyn 3.375 Gm Premix) 50 mls @ 100 mls/hr IV.SIG Q6H ON LICENSE OF [facility] Last Infusion: 01/07/18 17:07 Dose: Infused Pharmacy Profile Note (Vancomycin Consult Pharmacy) 0 mls @ 0 mls/hr OTHER UNSCH ON LICENSE OF [facility] Lactated Ringer's (Lr 1000 Ml Inj) 1,000 mls @ 30 mls/hr IV.SIG .Q24H ON LICENSE OF [facility] Stop: 01/09/18 01:58 Last Admin: 01/07/18 07:42 Dose: Not Given Sodium Chloride (Ns Inj) 500 mls @ 30 mls/hr IV.SIG .Q10H ON LICENSE OF [facility] Stop: 01/09/18 01:58 Vancomycin HCl 2,000 mg/ (Sodium Chloride) 520 mls @ 250 mls/hr IV.SIG Q24H ON LICENSE OF [facility] Last Infusion: 01/07/18 00:37 Dose: Infused Insulin Aspart (Novolog Insulin Correctional Sugar Inj) 0 unit SQ ACHS ON LICENSE OF [facility]; Protocol Last Admin: 01/07/18 17:07 Dose: 5 unit Lactulose (Lactulose Liq) 30 ml PO DAILY PRN PRN Reason: SEVERE CONSITIPATION Losartan Potassium (Cozaar) 100 mg PO DAILY ON LICENSE OF [facility] Last Admin: 01/07/18 09:04 Dose: 100 mg Metoprolol Tartrate (Lopressor) 25 mg PO QUICK SERVICE TECHNICIAN ON LICENSE OF [facility] Stop: 01/09/18 01:58 Miscellaneous Information ([facility] Ordered Lab Info) 0 each OTHER ONCE ONE Stop: 01/08/18 21:46 Neomycin/Polymyxin/Bacitracin (Neosporin Oint) 1 applicatio TOPICAL DAILY ON LICENSE OF [facility] Potassium Chloride (Kcl) 10 meq PO DAILY ON LICENSE OF [facility] Last Admin: 01/07/18 09:02 Dose: 10 meq Povidone Iodine (Betadine 5% Antisepsis Kit) 1 applicatio EACH NARE QUICK SERVICE TECHNICIAN ON LICENSE OF [facility] Stop: 01/09/18 01:58 Sennosides (Senokot) 17.2 mg PO Q12H PRN PRN Reason: Moderate Constipation Sertraline HCl (Zoloft) 100 mg PO DAILY ON LICENSE OF [facility] Last Admin: 01/07/18 09:05 Dose: 100 mg Temazepam (Restoril) 15 mg PO HS PRN PRN Reason: INSOMNIA Last Admin: 01/06/18 21:36 Dose: 15 mg Terazosin HCl (Hytrin) 20 mg PO DAILY ON LICENSE OF [facility] Last Admin: 01/07/18 09:03 Dose: 20 mg Torsemide (Demadex) 20 mg PO DAILY ON LICENSE OF [facility] Last Admin: 01/07/18 09:04 Dose: 20 mg Allergies Allergy/AdvReac Type Severity Reaction Status Date / Time No Known Allergies Allergy Unverified 01/01/18 12:28 Home Medications Medication Instructions Recorded Confirmed Type Humalog U-100 Insulin NOT APPLICABLE DIRECTED 01/01/18 History fenofibrate 160 mg PO DAILY 01/01/18 01/05/18 History potassium chloride 10 mg PO DAILY 01/01/18 01/05/18 History ranitidine HCl 150 mg PO BID 01/01/18 01/05/18 History terazosin 20 mg PO DAILY 01/01/18 01/01/18 History torsemide 20 mg PO DAILY 01/01/18 01/05/18 History amlodipine 10 mg PO DAILY 01/05/18 01/05/18 History atorvastatin 40 mg PO DAILY 01/05/18 01/05/18 History carvedilol [Coreg] 1 PO BID 01/05/18 History clopidogrel 75 mg PO DAILY 01/05/18 01/05/18 History glimepiride 4 mg PO BID 01/05/18 01/05/18 History losartan 100 mg PO DAILY 01/05/18 01/05/18 History metformin 1,000 mg PO BID 01/05/18 01/05/18 History sertraline 100 mg PO DAILY 01/05/18 01/05/18 History Results - Labs CBC & Chem 7: 01/06/18 06:16 01/07/18 06:34 Laboratory Results - last 24 hr 01/06/18 01/06/18 01/07/18 06:16 20:45 06:34 Creatinine 1.71 H Estimated GFR 40 L POC Glucose 252 H Hemoglobin A1c 9.7 H 01/07/18 01/07/18 01/07/18 07:52 12:06 16:34 Creatinine Estimated GFR POC Glucose 192 H 270 H 280 H Hemoglobin A1c Microbiology 01/05/18 14:40 Wound - Toe Gram Stain - Final 01/05/18 14:40 Wound - Toe Wound Culture - Final Staphylococcus aureus 01/05/18 16:20 Blood - Peripheral Aerobic Blood Culture - Preliminary No growth in 2 days 01/05/18 16:20 Blood - Peripheral Anaerobic Blood Culture - Preliminary No growth in 2 days 01/05/18 16:05 Blood - Peripheral Aerobic Blood Culture - Preliminary No growth in 2 days 01/05/18 16:05 Blood - Peripheral Anaerobic Blood Culture - Preliminary No growth in 2 days Assessment and Plan - Assessment (1) Fissure in skin of foot Code(s): R23.4 - Changes in skin texture Status: Acute (2) Osteomyelitis Code(s): M86.9 - Osteomyelitis, unspecified Status: Acute - Plan s/p amputation right 3rd toe 01/06/18 Dr Hogan Keep R foot bandage clean, dry, intact until follow up visit next week Continue weightbearing as tolerated right foot in surgical shoe. Ordered cleansing with hibiclens/triple antibiotic ointment/bandaid dressing left 3rd toe fissure area, to be changed daily upon discharge until his follow up. Had lengthy discussion with patient that his infected toe take priority over his stable un-infected fissure in the left 3rd toe, but recommendations will be made for further care. Discussed with patient in detail that he needs to have long-term thinking about prevention of amputation, and not just react when things go badly. Discussed he will have to be compliant with recommendations in order to adequately prevent amputation/infection/wounds, and keep follow up visits with a provider under his insurance plan for guidance as an outpatient for non- emergent matters. Clear for discharge tomorrow from podiatry standpoint. (2) Osteomyelitis Qualifiers: Osteomyelitis type: unspecified type Osteomyelitis location: foot Laterality : right Qualified Code(s): M86.9 - Osteomyelitis, unspecified
[2018-01-07] MEDS: Temazepam 15 MG Capsule PO PRN (22:28)
[2018-01-07] MEDS: Vancomycin Inj 2,000 MG in Sodium Chlor 0.9% Inj 500 ML IV.SIG SCH (22:28)
[2018-01-08] MEDS: Piperacil/Tazo 3.375 GM Premix 50 ML IV.SIG SCH ×2 (04:17→10:55)
[2018-01-08] MEDS: Potassium Chloride 10 MEQ ER Capsule PO SCH (08:23)
[2018-01-08] MEDS: Carvedilol 12.5 MG Tablet PO SCH (08:23)
[2018-01-08] MEDS: Torsemide 20 MG Tablet PO SCH (08:23)
[2018-01-08] MEDS: Famotidine 20 MG Tablet PO SCH (08:24)
[2018-01-08] MEDS: amLODIPine 10 MG Tablet PO SCH (08:24)
[2018-01-08] MEDS: Heparin - SQ 10,000 UNITS/ML Vial SQ SCH (08:24)
[2018-01-08] MEDS: Sertraline 100 MG Tablet PO SCH (08:24)
[2018-01-08] MEDS: Insulin NovoLOG Aspart Correctional Sugar Inj SQ SCH (08:37)
--- NOTE | 2018-01-08 12:07 | P.DS ---
Date of admission: 01/05/18 16:12 Primary care physician: No Primary Care Physician Anticipated date of discharge: 01/08/18 Brief History from admission: 9-year-old male with a medical history significant for hypertension, CHF, diabetes, neuropathy initially presented to the hospital about a week ago for right toe infection but left the hospital AMA. He returned because the wound has not gotten better and appear to be getting worse. He reports that he might have been wearing the wrong shoe. He states he has neuropathy and cannot feel his feet. He denies any pain, no fevers or chills. The patient recently moved from [place] and does not have a primary care physician or any specialist that he follows with. Workup in the emergency room revealed destructive changes involving the third distal phalanx characteristics of osteomyelitis. He was reluctant to stay in the hospital but after discussion with him, he understands the need to stay and get treated. DS: Diagnosis - Discharge Diagnosis (1) Osteomyelitis Status: Acute (2) Diabetes Status: Acute (3) Fissure in skin of foot Status: Acute DS: Medications - Discharge Medications Prescriptions: alprazolam [Xanax] 0.25 mg PO Q6H PRN #12 tab PRN Reason: Anxiety doxycycline hyclate 100 mg PO Q12H #14 tab temazepam 15 mg PO HS PRN #3 cap PRN Reason: Insomnia DS: Summary Hospital Course: Osteomyelitis X-ray in the emergency room shows destructive change involving the third distal phalanx characteristic of osteomyelitis. Podiatry was consulted. Wound culture grew staph. MRI suggested osteomyelitis. He was started on IV vancomycin and Zosyn. Patient is status post right third digit amputation. He will continue wound care and weightbearing per podiatry. He will be discharged on doxycycline. He will follow up with podiatry as an outpt. Diabetes with neuropathy: We held his PO regimen. He was placed on sliding scale insulin with Accu-Cheks. Hemoglobin A1c was 9.7%. He will resume his home regimen upon discharge. Anxiety The pt received Xanax and Restoril as needed. He will receive a three day prescription upon discharge. E-FORCSE was checked. Hypertension The pt's blood pressure fluctuated. He was continued on his home regimen. He will follow up with his primary care doctor. - Time Spent with Patient Total time spent providing and/or coordinating discharge services: Greater than 30 minutes - Quality: VTE Deep Vein Thrombosis/Pulmonary Embolism Present on Admission: No Exam Vital signs: Vital Signs 01/07/18 16:00 01/07/18 20:00 01/08/18 00:00 Temperature 97.4 F L 97.2 F L 97.3 F L Pulse Rate 59 L 63 60 Respiratory Rate 18 18 18 Blood Pressure 155/78 H 169/80 H 146/70 H Pulse Oximetry 96 96 97 01/08/18 08:00 Temperature 97.2 F L Pulse Rate 62 Respiratory Rate 18 Blood Pressure 192/93 H Pulse Oximetry 94 L Intake & Output 01/07/18 01/08/18 01/08/18 18:59 06:59 18:59 Intake Total 940 / 940 580 / 580 Balance 940 / 940 580 / 580 Weight 139.2 kg Intake: IV 100 / 100 100 / 100 Zosyn 3.375 GM Premix 50 ML @ 100 / 100 100 / 100 100 mls/hr IV.SIG Q6H [facility] Rx#: [id number] Oral 840 / 840 480 / 480 Other: # Voids 5 3 # Bowel Movements 1 Narrative: CONSTITUTIONAL/GENERAL: Obese male in no apparent distress. Vital signs reviewed CARDIOVASCULAR: Normal rate and regular rhythm without murmurs, gallops, or rubs. RESPIRATORY/CHEST: Symmetric, unlabored respirations. Breath sounds equal and clear to auscultation bilaterally. GASTROINTESTINAL: Abdomen obese, soft, non-tender, non-distended. MUSCULOSKELETAL: Right lower extremity with 2+ edema, left lower extremity with 1+ edema. Pattern is chronic per the patient. Right foot in a postop shoe. Dressing appear intact. NEUROLOGICAL: Awake and alert. No sensation in the foot. PSYCHIATRIC: No obvious mood problems. Results Procedures completed during hospitalization: Amputation Pending studies at discharge: Pending at discharge 01/06/18 Surgical [PTH] Routine Labs on day of discharge: Labs from last 24 hours 01/08/18 01/08/18 01/07/18 11:46 08:02 20:07 POC Glucose 270 H 210 H 217 H 01/07/18 01/07/18 16:34 12:06 POC Glucose 280 H 270 H Preliminary micro results at discharge 01/05/18 16:20 Aerobic Blood Culture - Preliminary Blood - Peripheral No growth in 3 days Anaerobic Blood Culture - Preliminary No growth in 3 days 01/05/18 16:05 Aerobic Blood Culture - Preliminary Blood - Peripheral No growth in 3 days Anaerobic Blood Culture - Preliminary No growth in 3 days - Impressions ITS Impressions Foot MRI 01/05/18 15:48 CONCLUSION: Abnormal signal in the distal aspect of the third distal phalanx. Given the history, this consistent with osteomyelitis. The fifth digit appears intact. Foot X-Ray 01/06/18 00:00 CONCLUSION: 1. Status post amputation of the right third middle and distal phalanges. 2. Degenerative changes involving the first metatarsophalangeal joint. Discharge Plan - Discharge Disposition Patient Disposition: Discharge Home - Discharge Condition Condition: Stable - Discharge Order Discharge Orders: Discharge Order (Routine); Ordered 01/08/18 Ordered By: Thai Bell - Discharge Details Anticipated Discharge Date: 01/08/18 - Physicians Team Primary Care Provider: Primary Care Corie Patel Attending Provider: Thai Bell Other Providers: Smitha Hogan DPM ; bMenu,Insurance
[2018-01-08] MEDS ORDERED: Pharmacy Ordered Lab Info OTHER ONE (21:45)
--- NOTE | 2018-01-20 17:18 | MP ---
cc: Smitha Hogan DPM DATE OF OPERATION: 01/06/2018 SURGEON: Smitha Hogan DPM [employer] CONSULTANT: None. PREOPERATIVE DIAGNOSIS: Right foot third digit osteomyelitis. POSTOPERATIVE DIAGNOSIS: Right foot third digit osteomyelitis. PROCEDURE PERFORMED: Right third digit toe amputation. PATHOLOGY SENT: Right third digit toe. ANESTHESIA: General. HEMOSTASIS: Pneumatic ankle tourniquet at 250 mmHg and anatomical dissection. ESTIMATED BLOOD LOSS: Less than 5 mL. MATERIALS USED: 3-0 Prolene. INJECTABLES: None. COMPLICATIONS: None. INDICATIONS FOR PROCEDURE: Mr. Chatterjee is a patient introduced to ct through the hospital system with known osteomyelitis both visually and confirmed on MRI. There is no skin tissue to allow for any type of closure or antibiotic options. The patient was informed that amputation is his best option at this time. The consent was signed. The procedure was explained. No guarantees were given. DESCRIPTION OF PROCEDURE: Under mild sedation, the patient was brought in to the operating room, placed on the operating table in supine position. Following IV sedation, an pneumatic ankle tourniquet was applied to the right ankle. The foot was then scrubbed, prepped and draped in the usual aseptic manner. Attention was directed to the third digit, where the distal phalanx was exposed and soft tissue ulceration overlying the dorsal aspect of the toe. Two semi-linear, elliptical incisions were created both medially and laterally in order to disarticulate the toe at the MPJ and removed from the field in toto, sent to the lab for further evaluation. The remaining bone structures and soft tissue structures were healthy in nature. The tendons were severed away from the incision site. The area was flushed with copious amounts of sterile saline. The skin was then closed using 3-0 Prolene. There was minimal skin tension noted on the incision line. The patient tolerated the procedure and the anesthesia well. He will recover in the PACU for a period of time before being discharged back to his hospital bed, with written and oral postoperative instructions. Smitha Hogna DPM [facility]/ , 05:02 PM , 05:09 PM
== END 2018-01-08 12:35 | disposition home or self-care (01) ==
LOC: NEPC 13:19 → NEDA 16:12 → N07 20:29
PROVIDERS: ADMIT Hospitalist; ATTEND Hospitalist